=== PATIENT | male | born 1970 | race Caucasian/White ===

== ENCOUNTER → 2021-06-08 13:50 | Outpatient (CLI) | payer BC, SELFPAY ==
[2021-06-08 15:08] VITALS: BMI 33.3
[2021-06-08 15:19] VITALS: BMI 33.3
== END ==
PROVIDERS: PCP Family Medicine; Visit Provider Family Medicine
DX: Z71.3 Dietary counseling and surveillance (principal); E11.9 Type 2 diabetes mellitus without complications
CPT/HCPCS: 97802

== ENCOUNTER 2023-02-01 07:28 | Day surgery (SDC) | payer BC, SELFPAY ==
[2023-02-01 07:42] VITALS: BP 133/83; PULSE 56; RESP 18; TEMP 36.4; O2SAT 98
--- NOTE | 2023-02-01 08:22 | P.PNANES_ITS ---
[facility] Disclaimer: The information contained in this section may have been updated after the patient was seen, as this information can be updated by other users. Medical History Diabetes High cholesterol Hypertension Surgical History History of placement of ear tubes Family History Other Family history of diabetes mellitus (DM) Family history of heart disease Social History Smoking Status: Former smoker alcohol intake: current substance use type: denies use current occupational status: employed Travel in the last 8 weeks: None [facility] Anesthesia Checklist Patient Identification Patient Identification: Arm Band Structural Data Admitted From: Home Planned Operative Procedure/s: colonoscopy Consent for Planned Operative Procedure(s) Verified: Yes Verified Documents: Surgical Consent and History and Physical NPO Status Verified Time NPO: 00:00 Additional verifications Anesthesia Reactions: No Airway Assessment Mallampati Score:: Class III C-Spine Mobility Assessed: Yes TMJ Mobility Assessed: Yes Dentition: Good Dentition Neurological Assessment Level of Consciousness: Awake and Alert Anesthesia Plan Anesthesia Risk discussed: Yes Anesthesia Plan: Verified ASA Class: II Anesthesia Type: MAC
--- NOTE | 2023-02-01 08:28 | HMH.SCOPE ---
Procedure: Date: 02/01/23 Patient Date of :: 1970 Procedure Performed:: Total colonoscopy to terminal ileum with numerous polypectomy using biopsy forceps, cold snare, hot snare Indications:: Patient is a 52-year-old male from [place] referred by Dr. Osvaldo Powell for initial screening colonoscopy. No prior colonoscopy. No family history. He has had some symptoms he attributes to hemorrhoids characterized by some minor irritation, itching, and occasional bleeding. Performing Provider:: Morgan Jefferson MD Referring Provider:: Osvaldo Powell Sedation:: MAC sedation Procedure:: Patient history was obtained and appropriate physical examination was performed. Patient's medications and allergies were reviewed. Informed consent was obtained after explaining the benefits, alternatives, and risks of the procedure including, but not limited to, bleeding, perforation, missed lesions, and adverse reaction to anesthesia medications. Patient was transported to endoscopy procedure room. Patient was connected to monitoring devices. Throughout the procedure the patient's blood pressure, pulse, and oxygen saturations were monitored continuously. Patient identification and planned procedure were verified by the staff. Patient was positioned in lateral decubitus position. Digital anorectal exam was performed. Variable stiffness Olympus colonoscope was inserted and advanced under direct visualization to the cecum. Adequacy of the colonic preparation was noted. The colonoscope was advanced a short distance into the terminal ileum. The colonoscope was then slowly withdrawn while carefully examining the color, texture, anatomy, and integrity of the mucosoa circumferentially. Within the rectum retroflexion was performed. Colonoscope was then withdrawn. . Colonic preparation was good. Patient had numerous polyps many of which were large and complex. In the proximal transverse colon there was a large polyp removed with hot snare with residual tissue removed with biopsy forceps. In the distal transverse colon there were 3 diminutive polyps removed with biopsy forceps. In the descending colon there was 3 diminutive polyps removed with biopsy forceps. In the sigmoid colon there was complex adenomatous polyp removed with hot snare. Somewhat distally in the sigmoid colon there were a couple of adenomatous appearing polyps 1 removed with cold snare 1 removed with hot snare. The distal sigmoid colon there were several polyps 1 removed with cold snare and a couple of removed with biopsy forceps. Throughout the colon there were multiple hyperplastic appearing polyps. Larger were these that were removed with biopsy forceps and some of these tiny polyps did appear adenomatous. In the rectosigmoid he had him moderate complex adenomatous polyp removed with hot snare. In the rectum there was a moderate adenomatous appearing polyp removed with hot snare. Retroflexion within the rectum revealed nonbleeding internal hemorrhoids. Colonoscope was withdrawn. . . Findings:: He had numerous polyps throughout the colon. There were approximately 15 removed. Several of these were large complex adenomatous polyps measuring between 10 and 15 mm. He did have numerous hyperplastic appearing polyps throughout the colon as well and larger of these were removed with biopsy forceps. Some of these diminutive polyps that were removed with biopsy forceps appeared adenomatous as early tubular adenomas as well. Recommendations:: Given the large number of adenomatous polyps many of which were large and complex recommend repeat colonoscopy within 1 to 2 years pending pathology. Complications:: None immediately apparent Estimated blood obtained (mL): 3 Colonoscopy Component Colonoscopy Component Was a colonoscopy performed during today's procedure?: Yes Recommended follow up colonoscopy of at least 10 years?: No If no, follow up colonoscopy recommended in ___ years?: 2 Re
[2023-02-01 08:29] VITALS: O2SAT 98
[2023-02-01 09:25] VITALS: BP 94/60; PULSE 81; RESP 16; TEMP 36.2; O2SAT 92
[2023-02-01 09:35] VITALS: BP 101/53; PULSE 74; RESP 16; O2SAT 96
[2023-02-01 09:45] VITALS: BP 102/56; PULSE 64; RESP 16; O2SAT 96
[2023-02-01 09:55] VITALS: BP 103/58; PULSE 64; RESP 16; TEMP 36.7; O2SAT 99
[2023-02-02 07:44] LABS: POC Glucose,Bedside 119 (70-110)
== END 2023-02-01 10:00 | disposition home or self-care (01) ==
PROVIDERS: PCP Family Medicine; Visit Provider Surgery
PROC: 0DJD8ZZ Inspection of Lower Intestinal Tract, Via Natural or Artificial Opening Endoscopic (ICD-10-PCS; CPT 45385; principal; 2023-02-01 08:30)
DX: Z12.11 Encounter for screening for malignant neoplasm of colon (principal); K64.8 Other hemorrhoids; D12.3 Benign neoplasm of transverse colon; D12.5 Benign neoplasm of sigmoid colon; D12.8 Benign neoplasm of rectum; E11.9 Type 2 diabetes mellitus without complications
CPT/HCPCS: 45385; 45380; 82962; J2704

== ENCOUNTER → 2023-02-08 09:49 | Outpatient (CLI) | payer BC, SELFPAY ==
--- NOTE | 2023-02-08 09:53 | XR_ITS ---
FINAL REPORT CLINICAL HISTORY: RT SHOULDER PAIN COMPARISON: None FINDINGS: RIGHT SHOULDER Three views demonstrate no acute fracture or dislocation. There is mild acromioclavicular degenerative change present. The visualized bony structures are well aligned. No soft tissue abnormality is seen. IMPRESSION: No acute process. Mild degenerative change of the acromioclavicular joint. Reviewed, Interpreted and Dictated by Morgan Steele III, MD Transcribed by Nimisha Deras Authenticated and [facility]
== END ==
PROVIDERS: PCP Family Medicine; Visit Provider Family Medicine
DX: M25.511 Pain in right shoulder (principal)
CPT/HCPCS: 73030

== ENCOUNTER → 2023-03-04 07:56 | Outpatient (CLI) | payer BC, SELFPAY | PROVIDERS: PCP Family Medicine; Visit Provider Orthopaedic Surgery | DX: M25.511 Pain in right shoulder (principal) ==